=== PATIENT | male | born 1995 ===

== ENCOUNTER 2018-08-12 05:20 | Emergency (ER) | payer SELFPAY ==
[2018-08-12] MEDS: SODIUM CHLORIDE 0.9% 1000ML 1,000 ML IV ONE ×2 (05:27→06:50)
[2018-08-12 05:56] LABS: BASOPHILS % (AUTO) 1 % (0-3); EOSINOPHILS % (AUTO) 1 % (0-9); HEMATOCRIT 47 % (39-53); HEMOGLOBIN 15.8 gm/dl (13.5-17.7); LYMPHOCYTES % (AUTO) 26.9 % (10-50); MEAN CORPUSCULAR HEMOGLOBIN 29.7 pg (27.0-32.0); MEAN CORPUSCULAR HGB CONC 33.6 gm/dl (32.0-36.0); MEAN CORPUSCULAR VOLUME 88 fL (80-100); NEUTROPHILS % (AUTO) 58.7 % (37-80)
[2018-08-12 06:00] LABS: INR 1.14 (0.86-1.12)
[2018-08-12] MEDS ORDERED: FENTANYL 100MCG/2ML SOL ONE (06:04)
[2018-08-12] MEDS ORDERED: TDAP VACCINE 0.5 ML SUS IM ONE (06:04)
[2018-08-12] MEDS ORDERED: LORAZEPAM 2 MG/ML SOL ONE (06:04)
[2018-08-12 06:07] LABS: ALBUMIN 4.4 gm/dl (3.4-5.0); ALKALINE PHOSPHATASE 70 IU/L (46-116); ALT 24 IU/L (14-63); AST 14 IU/L (15-37); BILIRUBIN,TOTAL 0.5 mg/dl (0.2-1.0); BLOOD UREA NITROGEN 18 mg/dl (7-18); CALCIUM 8.8 mg/dl (8.5-10.1); CARBON DIOXIDE 23.4 mEq/L (21-32); CHLORIDE 102 mMol/L (98-107); CREATININE 1.19 mg/dl (0.80-1.30); GLUCOSE 169 mg/dl (74-106); POTASSIUM 4.1 mMol/L (3.5-5.1); SODIUM 143 mMol/L (136-145); TOTAL PROTEIN 7.5 gm/dl (6.4-8.2)
[2018-08-12 06:11] LABS: ALCOHOL < 0.003 gm/dl (0.000-0.08)
[2018-08-12] MEDS: LORAZEPAM 2 MG/ML SOL IV ONE (06:12)
[2018-08-12] MEDS: TDAP VACCINE 0.5 ML SUS IM ONE (06:17)
[2018-08-12] MEDS: FENTANYL 100MCG/2ML SOL IV ONE (06:20)
[2018-08-12 06:37] VITALS: TEMP 98.2
[2018-08-12 07:40] VITALS: BP 136/95; PULSE 113; RESP 19; O2SAT 97
== END 2018-08-12 07:05 | disposition short-term general hospital (02) | DRG 605 ==
LOC: ED 05:20
DX: S21.211A Laceration without foreign body of right back wall of thorax without penetration into thoracic cavity, initial encounter (principal); X99.1XXA Assault by knife, initial encounter; R40.2362 Coma scale, best motor response, obeys commands, at arrival to emergency department; R40.2142 Coma scale, eyes open, spontaneous, at arrival to emergency department; R40.2252 Coma scale, best verbal response, oriented, at arrival to emergency department
CPT/HCPCS: 71045; 71250; 80053; 80307; 85025; 85610; 90471; 90715; 96365; 96366; 96374; 96375; 99291; G0390; J2060; J3010

== ENCOUNTER 2018-08-18 19:12 | Emergency (ER) | payer SELFPAY ==
[2018-08-18 19:13] VITALS: O2SAT 97
== END 2018-08-18 20:16 | disposition left against medical advice (07) | DRG 948 ==
LOC: ED 19:12
DX: R52 Pain, unspecified (principal); X99.9XXD Assault by unspecified sharp object, subsequent encounter; Z53.21 Procedure and treatment not carried out due to patient leaving prior to being seen by health care provider
CPT/HCPCS: 99281; 99282

== ENCOUNTER 2018-08-19 07:24 | Emergency (ER) | payer SELFPAY ==
[2018-08-19] MEDS ORDERED: LORAZEPAM 2 MG/ML 10ML MDV 2 MG/ML VIAL IV ONE (08:21)
[2018-08-19] MEDS ORDERED: KETOROLAC TROMETHAMINE 30 MG/ML SOL IV ONE (08:21)
[2018-08-19] MEDS ORDERED: KETOROLAC TROMETHAMINE 30 MG/ML SOL ONE (08:26)
[2018-08-19] MEDS ORDERED: LORAZEPAM 2 MG/ML SOL ONE (08:26)
[2018-08-19] MEDS ORDERED: SODIUM CHLORIDE 0.9% 1000ML 1,000 ML IV SCH (08:30)
[2018-08-19 08:43] LABS: BASOPHILS % (AUTO) 0 % (0-3); EOSINOPHILS % (AUTO) 0 % (0-9); HEMATOCRIT 39 % (39-53); HEMOGLOBIN 12.9 gm/dl (13.5-17.7); LYMPHOCYTES % (AUTO) 5.5 % (10-50); MEAN CORPUSCULAR HEMOGLOBIN 29.6 pg (27.0-32.0); MEAN CORPUSCULAR HGB CONC 32.9 gm/dl (32.0-36.0); MEAN CORPUSCULAR VOLUME 90 fL (80-100); MONOCYTES % (AUTO) 6.1 % (0-12); NEUTROPHILS % (AUTO) 87.7 % (37-80)
[2018-08-19 08:57] LABS: CALCIUM 8.9 mg/dl (8.5-10.1); CARBON DIOXIDE 32.2 mEq/L (21-32); CREATININE 0.69 mg/dl (0.80-1.30); POTASSIUM 4.1 mMol/L (3.5-5.1)
[2018-08-19 08:57] LABS: AMPHETAMINES NEGATIVE (NEGATIVE); BARBITUATES NEGATIVE (NEGATIVE); BENZODIAZEPINES NEGATIVE (NEGATIVE); CANNABINOL(THC) NEGATIVE (NEGATIVE); COCAINE(COC) NEGATIVE (NEGATIVE); METHADONE NEGATIVE (NEGATIVE); METHAMPHETAMINES NEGATIVE (NEGATIVE); OPIATES(OPI) NEGATIVE (NEGATIVE); OXYCODONE(OXY) POSITIVE (NEGATIVE); PROPOXYPHENE(PPX) NEGATIVE (NEGATIVE); TRICYCLIC ANTIDEPRESSANTS NEGATIVE (NEGATIVE)
[2018-08-19 09:34] VITALS: TEMP 98.3
[2018-08-19] MEDS ORDERED: SODIUM CHLORIDE 0.9% 1000ML 1,000 ML IV ONE (09:54)
[2018-08-19 12:22] LABS: SALICYLATE 2.8 mg/dl (2.8-30.0)
[2018-08-19 12:23] LABS: ACETAMINOPHEN < 2 ug/ml (10-30)
[2018-08-19 12:38] VITALS: BP 137/79; PULSE 98; RESP 18; O2SAT 99
== END 2018-08-19 13:22 | disposition home or self-care (01) | DRG 897 ==
LOC: ED 07:24
DX: F11.10 Opioid abuse, uncomplicated (principal); S31.010D Laceration without foreign body of lower back and pelvis without penetration into retroperitoneum, subsequent encounter; W45.8XXD Other foreign body or object entering through skin, subsequent encounter
CPT/HCPCS: 80048; 80305; 80307; 85025; 96365; 96366; 96374; 99283; 99285; J1885; J2060